=== PATIENT | female | born 1965 | race Caucasian/White ===

== ENCOUNTER 2018-07-19 10:05 | Emergency (ER) | END 2018-07-19 15:34 | disposition home or self-care (01) ==

== ENCOUNTER 2018-09-19 07:41 | Emergency (ER) | END 2018-09-19 09:59 | disposition home or self-care (01) ==

== ENCOUNTER 2019-03-08 10:09 | Emergency (ER) | payer OTHER ==
[~2019-03-08] VITALS: Ht 147.3 cm; Wt 63.9 kg
[~2019-03-08 10:09] MED LIST: FIORICET PO; LOPE2CAP PO; ONDA4TAB14 PO
[2019-03-08 10:30] VITALS: BP 138/65; PULSE 73; RESP 19; Ht 147.3 cm; Wt 63.9 kg
[2019-03-08] MEDS ORDERED: PHENAZOPYRIDINE 100 MG TAB PO ONE (12:30)
[2019-03-08] MEDS ORDERED: PHEN-538 PO (13:12)
[2019-03-08] MEDS ORDERED: SULF1TAB31 PO (13:12)
--- NOTE | 2019-03-08 13:15 | ERD ---
ER Documentation Chief Complaint Chief Complaint BACK PAIN, BLOOD IN THE URINE HPI This is a 54-year-old female patient presents emergency room with complaint of back pain x 1 year and blood in her urine x 4 days. States she visited her in [place] 4 days ago and was sexually active before hematuria started. No fevers, no flank pain, no abdominal pain, no vaginal pain, no vaginal bleeding. ROS All systems reviewed and are negative except as per history of present illness. Medications Home Meds Active Scripts Phenazopyridine Hcl* (Pyridium*) 200 Mg Tab, 200 MG PO TID PRN for URINARY PAIN, #6 TAB Prov:LAILA VILLATORO NP 03/08/19 Sulfamethoxazole/Trimethoprim* (Bactrim Ds* Tablet) 1 Each Tablet, 1 TAB PO BID for 3 Days, #6 TAB Prov:LAILA VILLATORO NP 03/08/19 Acetamin/Butalbital/Caffeine* (Fioricet*) [id number] Tab, 1 TAB PO Q6H PRN for PAIN, #30 TAB Prov:VINCE FINLEY PA-C 09/19/18 Loperamide Hcl* (Imodium*) 2 Mg Capsule, 2 MG PO .AFTER EA LOOSE BM PRN for DIARRHEA, #10 TAB Prov:WANDY ESCALONA MD 07/19/18 Ondansetron (Ondansetron Odt) 4 Mg Tab.rapdis, 4 MG PO Q6H PRN for NAUSEA AND/OR VOMITING, #10 TAB Prov:WANDY ESCALONA MD 07/19/18 Allergies Allergies: Coded Allergies: Penicillins (Verified Allergy, Unknown, 03/08/19) PMhx/Soc History of Surgery: Yes (csection) Anesthesia Reaction: No Hx Neurological Disorder: No Hx Respiratory Disorders: No Hx Cardiac Disorders: Yes (htn) Hx Psychiatric Problems: No Hx Miscellaneous Medical Probl: No Hx Alcohol Use: No Hx Substance Use: No Hx Tobacco Use: No Smoking Status: Never smoker FmHx Family History: No diabetes, No coronary disease, No other Physical Exam Vitals Vital Signs Date Temp Pulse Resp B/P (MAP) Pulse Ox O2 O2 Flow FiO2 Time Delivery Rate 03/08/19 97.9 73 19 138/65 96 10:30 (89) Physical Exam Const: No acute distress Head: Atraumatic Eyes: Normal Conjunctiva ENT: Normal External Ears, Nose and Mouth. Neck: Full range of motion. No meningismus. No lymphadenopathy Resp: Clear to auscultation bilaterally Cardio: Regular rate and rhythm, no murmurs Abd: Soft, non tender, non distended. Normal bowel sounds. No hepato-or splenomegaly Skin: No petechiae or rashes, warm dry Back: No midline or flank tenderness, no CVT, no ltd ROM, tender over muscles of lower trapezius BL Ext: No cyanosis, or edema Neur: Awake and alert Psych: Normal Mood and Affect Results 24 hrs Laboratory Tests Test 03/08/19 11:57 03/08/19 12:00 Bedside Urine pH (LAB) 5.5 Bedside Urine Protein (LAB) Negative Bedside Urine Glucose (UA) Negative Bedside Urine Ketones (LAB) Negative Bedside Urine Blood 2+ Bedside Urine Nitrite (LAB) Negative Bedside Urine Leukocyte Esterase (L Trace Urine Color YELLOW Urine Clarity CLEAR Urine pH 6.0 Urine Specific [place] 1.015 Urine Ketones NEGATIVE mg/dL Urine Nitrite NEGATIVE mg/dL Urine Bilirubin NEGATIVE mg/dL Urine Urobilinogen NEGATIVE mg/dL Urine Leukocyte Esterase TRACE Ranjan/ul Urine Microscopic RBC 13 /HPF Urine Microscopic WBC 0 /HPF Urine Squamous Epithelial Cells FEW /HPF Urine Hemoglobin 2+ mg/dL Urine Glucose NEGATIVE mg/dL Urine Total Protein NEGATIVE mg/dl Current Medications Medications Dose Sig/Herman Start Time Status Last (Trade) Ordered Route PRN Stop Time Admin Dose Reason Admin 200 mg ONCE ONCE 03/08/19 DC 03/08/19 Phenazopyridi PO 12:30 12:15 ne HCl 03/08/19 12:31 (Pyridium) Procedures/MDM This is a 54-year-old female patient presents emergency room with complaint of back pain x 1 year and blood in her urine x 4 days. This patient has been started on antibiotic treatment for UTI, urine has been sent to the lab for culture. Patient has been instructed to complete entire course of antibiotics and follow-up with primary care physician for follow-up UA due to hematuria. There is low suspicion for pyelonephritis, vaginitis, STI, or interstitial cystitis due to absence of clinical findings that would support a diagnosis more serious than uncomplicated UTI. These diagnoses have been considered and excluded clinically. Nonetheless, it is understood by both the patient and provider that no clinical or diagnostic assessment can entirely exclude such diseases. Patient has been instructed on signs and symptoms of concern or with evolving condition with strict instructions to return to ED for reevaluation. Departure Diagnosis: Primary Impression: Cystitis Condition: Stable Patient Instructions: Cystitis Referrals: [facility] YOU HAVE RECEIVED A MEDICAL SCREENING EXAM AND THE RESULTS INDICATE THAT YOU DO NOT HAVE A CONDITION THAT REQUIRES URGENT TREATMENT IN THE EMERGENCY DEPARTMENT. FURTHER EVALUATION AND TREATMENT OF YOUR CONDITION CAN WAIT UNTIL YOU ARE SEEN IN YOUR DOCTORS OFFICE WITHIN THE NEXT 1-2 DAYS. IT IS YOUR RESPONSIBILITY TO MAKE AN APPOINTMENT FOR FOLOW-UP CARE. IF YOU HAVE A PRIMARY DOCTOR --you should call your primary doctor and schedule an appointment IF YOU DO NOT HAVE A PRIMARY DOCTOR YOU CAN CALL OUR PHYSICIAN REFERRAL HOTLINE AT IF YOU CAN NOT AFFORD TO SEE A PHYSICIAN YOU CAN CHOSE FROM THE FOLLOWING [facility] [address] [facility]. [facility] [address] [facility] [facility] [address] [facility] [address] [facility] [address] [facility]. [facility]. [address] Additional Instructions: Thank you very much for allowing us to participate in your care. Your health and safety is our top priority at [facility]. Call your primary care doctor TOMORROW for an appointment during the next 2-4 days and bring all the information and medications prescribed. Have prescriptions filled and follow precisely the directions on the label. If the symptoms get worse and your provider is unavailable, return to the Emergency Department immediately. COMPLETE ENTIRE COURSE OF ANTIBIOTICS. USE PYRIDIUM NEEDED FOR BLADDER PAIN. YOU HAD BLOOD IN YOUR URINE. FOLLOW-UP WITH YOUR PRIMARY DOCTOR FOR REPEAT URINE TEST. YOUR URINE HAS BEEN SENT FOR CULTURE. LAILA VILLATORO NP March 08, 2019 13:15
== END 2019-03-08 13:25 | disposition home or self-care (01) ==
LOC: FTE 10:09
DX: N30.91 Cystitis, unspecified with hematuria (principal); I10 Essential (primary) hypertension
CPT/HCPCS: 81001; 87086; Z7502; Z7610; 81003; 99283

== ENCOUNTER 2019-08-10 03:07 | Emergency (ER) | payer OTHER ==
[~2019-08-10] VITALS: Ht 147.3 cm; Wt 64.3 kg
[~2019-08-10 03:07] MED LIST changes: +NITR-58 PO; +PHEN-538 PO; +SULF1TAB31 PO
[2019-08-10 03:14] VITALS: Ht 147.3 cm; Wt 64.3 kg
[2019-08-10] MEDS ORDERED: PHENAZOPYRIDINE 100 MG TAB PO ONE ×2 (04:00)
[2019-08-10] MEDS ORDERED: NITROFURANTOIN (SR) 100 MG CAP PO ONE (04:00)
[2019-08-10 04:17] VITALS: BP 140/66; PULSE 68; RESP 18
== END 2019-08-10 04:17 | disposition home or self-care (01) ==
LOC: E/R 03:07
DX: N39.0 Urinary tract infection, site not specified (principal); I10 Essential (primary) hypertension
CPT/HCPCS: 81003; Z7502; Z7610; 99283